=== PATIENT | female | born 1955 | race Caucasian/White ===

== ENCOUNTER → 2016-07-26 | Outpatient (CLI) | payer BC ==
[~2016-07-26] MED LIST: CRS/10 PO; DOXY50CA5 PO; ESCI10TA17 PO; ONDA4TAB9 SL; ZOLP5TAB PO
--- NOTE | 2016-07-26 15:29 | DIAGNOSTIC IMAGING REPORT ---
RIGHT HIP UNILATERAL 2 VIEWS CLINICAL HISTORY: Lower limb pain. Positive BETZY. Right hip pain. COMPARISON: None FINDINGS: Lumbar spine fusion hardware is partially imaged. Alignment of the right hip is anatomic. There is no fracture or suspicious lesion. Right hip joint space is preserved. There is no evidence for a vascular necrosis. No erosions are identified. IMPRESSION: No significant abnormality of the right hip. Electronically signed by: Tacos Corcoran M.D. 07/26/2016 3:27 PM Dictated Date/Time: 07/26/2016 3:26 PM
--- NOTE | 2016-07-26 15:32 | DIAGNOSTIC IMAGING REPORT ---
RIGHT HAND MIN 3 VIEWS ROUTINE, LEFT HAND MIN 3 VIEWS ROUTINE CLINICAL HISTORY: Bilateral hand pain. COMPARISON STUDY: None. FINDINGS: Minimal cartilage space narrowing within the DIP joints of the bilateral hands consistent with arthritic change. No erosions identified. No fracture or dislocation. Soft tissues are unremarkable. The bone mineralization is intact. IMPRESSION: Minimal degenerative changes at the DIP joints. No erosions within the hand. Electronically signed by: Jose Parada M.D. 07/26/2016 3:30 PM Dictated Date/Time: 07/26/2016 3:28 PM
[2016-08-01 03:15] LABS: ANTI-CENTROMERE AB <1.0 NEG AI (<1.0 NEG); ANTI-SS-A <1.0 NEG AI (<1.0 NEG); ANTI-SS-B 1.1 POS AI (<1.0 NEG); DNA ds CRITHIDIA NEGATIVE (NEGATIVE); Sm Antibody <1.0 NEG AI (<1.0 NEG)
--- NOTE | 2016-08-03 11:26 | CODING QUERY MEDICAL NECESSITY ---
CQSUPPORTING DIAGNOSIS NEEDED A supporting diagnosis is required for the test/procedure performed on this patient in order for us to be reimbursed by the patient's insurance. Please provide a supporting diagnosis for the following test/procedure listed below next to the test name along with your signature. *If there is no additional diagnosis for this patient that would support the following test/procedure please document that below next to the test/procedure. Test(s)/Procedure(s) that require a supporting diagnosis: DOS 07/26/16 VITAMIN D TEST Provider Signature: Date: Thank you Monalisa Basurto [facility] Information Management Once completed, please kindly fax back to [phone] For questions please call [phone]
== END | disposition home or self-care (01) ==
LOC: C.RAD1850 15:03
PROVIDERS: ATTEND Internal Medicine Rheumatology
DX: M13.80 Other specified arthritis, unspecified site (principal); M25.551 Pain in right hip; M79.606 Pain in leg, unspecified; R76.8 Other specified abnormal immunological findings in serum

== ENCOUNTER → 2017-05-30 | Outpatient (CLI) | payer BC ==
[2017-05-30 12:15] LABS: BASO % 0.5 %; BASO ABS # 0.02 K/uL (0-0.2); EOS ABS # 0.17 K/uL (0-0.5); HEMOGLOBIN 13.4 g/dL (12.0-16.0); IG# 0.01 K/uL (0.00-0.02); LYMPH % 38.2 %; LYMPH ABS # 1.63 K/uL (1.2-3.4); MEAN CELL VOLUME 87.6 fL (80-100); MEAN CORPUSCULAR HEMOGLOBIN 30.1 pg (25-34); MEAN CORPUSCULAR HGB CONC 34.4 g/dl (32-36); MONO % 5.9 %; MONO ABS # 0.25 K/uL (0.11-0.59); NEUT % 51.2 %; NEUT ABS # 2.19 K/uL (1.4-6.5); PLATELET COUNT 215 K/uL (130-400); RED CELL DISTRIBUTION WIDTH SD 41.9 fL (36.4-46.3); WHITE BLOOD COUNT 4.27 K/uL (4.8-10.8)
[2017-05-30 12:21] LABS: ALBUMIN 3.7 gm/dl (3.4-5.0); ALT/SGPT 33 U/L (12-78); AST/SGOT 17 U/L (15-37); CREATININE 0.78 mg/dl (0.60-1.20)
[2017-05-30 12:24] LABS: ALKALINE PHOSPHATASE 105 U/L (45-117); TOTAL PROTEIN 7.2 gm/dl (6.4-8.2)
== END | disposition home or self-care (01) ==
LOC: C.LAB1850 10:08
PROVIDERS: ATTEND Internal Medicine Rheumatology
DX: M35.1 Other overlap syndromes (principal); E55.9 Vitamin D deficiency, unspecified; Z79.1 Long term (current) use of non-steroidal anti-inflammatories (NSAID)